=== PATIENT | male | born 1970 | race Two or more races ===

== ENCOUNTER 2021-07-19 21:54 | Emergency (ER) | payer OTHER ==
[~2021-07-19] VITALS: Ht 167.6 cm; Wt 95.3 kg
[2021-07-20 09:31] VITALS: BP 120/59
== END 2021-07-20 09:24 | disposition home or self-care (01) ==
LOC: ER 21:56
DX: S09.90XA Unspecified injury of head, initial encounter (principal); X58.XXXA Exposure to other specified factors, initial encounter; Y93.89 Activity, other specified; Y92.89 Other specified places as the place of occurrence of the external cause; Y99.8 Other external cause status
CPT/HCPCS: 70450